=== PATIENT | female | born 1955 | race Caucasian/White ===

== ENCOUNTER 2016-10-18 13:23 | Observation (INO) | payer OTHER ==
[~2016-10-18] VITALS: Ht 171.4 cm; Wt 73.3 kg
[2016-10-18 14:17] LABS: HEMATOCRIT 39.8 % (36.0-46.0); MCH 30.2 PG (29.0-34.0); MCHC 32.4 G/DL (30.0-36.0); MCV 93.2 FL (83-99); MEAN PLAT.VOLUME 10.1 uM^3 (9.5-12.4); PLATELET COUNT 321 K/uL (156-360); RBC DIS.WIDTH-CV 12.4 % (11.8-14.6); RBC DIS.WIDTH-SD 42.7 % (39-53); RED BLOOD COUNT 4.27 M/uL (3.80-5.20); WHITE BLOOD COUNT 6.1 K/uL (4.1-10.2)
[2016-10-18 14:26] LABS: CHLORIDE 105 mEq/L (99-109); POTASSIUM 4.1 mEq/L (3.7-5.4); SODIUM 141 mEq/L (136-147)
[2016-10-18 14:28] LABS: GLUCOSE 99 mg/dL (70-99)
[2016-10-18 14:29] LABS: ANION GAP 13 MEQ/L (2-14)
[2016-10-18 14:31] LABS: GFR ESTIMATE (CALCULATED) > 59 mL/min/
[2016-10-18 14:32] LABS: UREA NITROGEN (BUN) 21 mg/dL (9-23)
[2016-10-18 14:37] LABS: TROP-I INTERPRETATION NEGATIVE; TROPONIN-I < 0.01 ng/mL (0.0-0.30)
[2016-10-18] MEDS ORDERED: ADVIL200 MG PO (16:13)
[2016-10-18 21:14] VITALS: BP 118/69
[2016-10-18 22:27] LABS: TROP-I INTERPRETATION NEGATIVE; TROPONIN-I < 0.01 ng/mL (0.0-0.30)
[2016-10-18 23:42] VITALS: BP 97/50
[2016-10-19 03:03] LABS: TROP-I INTERPRETATION NEGATIVE; TROPONIN-I < 0.01 ng/mL (0.0-0.30)
[2016-10-19 04:32] VITALS: BP 93/50
[2016-10-19 07:16] VITALS: BP 101/59
[2016-10-19 07:25] LABS: ALKALINE PHOSPHATASE 31 IU/L (3-129); ANION GAP 7 MEQ/L (2-14); CHLORIDE 110 MEQ/L (99-109); GFR ESTIMATE (CALCULATED) > 59 mL/min/; GLUCOSE 97 mg/dL (70-99); POTASSIUM 4.3 MEQ/L (3.7-5.4); SAMPLE HEMOLYSIS CHECK 0; SAMPLE ICTERIC CHECK 0; SAMPLE LIPEMIA CHECK 0; SODIUM 143 MEQ/L (136-147); TOTAL BILIRUBIN 0.7 MG/DL (0.0-1.0); UREA NITROGEN (BUN) 18 mg/dL (9-23)
[2016-10-19 07:26] LABS: HEMATOCRIT 33.5 % (36.0-46.0); MCH 30.7 PG (29.0-34.0); MCHC 33.4 G/DL (30.0-36.0); MCV 91.8 FL (83-99); MEAN PLAT.VOLUME 10.9 uM^3 (9.5-12.4); PLATELET COUNT 255 K/uL (156-360); RBC DIS.WIDTH-CV 12.4 % (11.8-14.6); RBC DIS.WIDTH-SD 41.6 % (39-53); RED BLOOD COUNT 3.65 M/uL (3.80-5.20); WHITE BLOOD COUNT 5.5 K/uL (4.1-10.2)
[2016-10-19 07:39] LABS: HDL CHOLESTEROL 57 MG/DL (Desirable>=50); LDL CHOLESTEROL 107 mg/dL (Desirable<100); NON-HDL CHOLESTEROL 120 mg/dL (Desirable<160); TOTAL CHOLESTEROL 177 mg/dL (Desirable<200); TRIGLYCERIDES 63 MG/DL (Normal: <150)
[2016-10-19] MEDS ORDERED: ASPIR-LOW81 MG PO (09:53)
== END 2016-10-19 10:38 | disposition home or self-care (01) ==
LOC: EME 13:23 → EDOF 18:07 → 5WEST 20:55
PROVIDERS: Emergency Medicine; Internal Medicine
DX: R07.89 Other chest pain (principal); R42 Dizziness and giddiness; I65.23 Occlusion and stenosis of bilateral carotid arteries; M79.604 Pain in right leg; M79.602 Pain in left arm; D64.9 Anemia, unspecified
CPT/HCPCS: 71020; 80048; 80053; 80061; 84443; 84484; 85027; 85379; 93005; 93880; 93971; 99281; 99285; G0378; J1644; J7030